=== PATIENT | female | born 1990 | race Caucasian/White ===

== ENCOUNTER 2017-03-07 18:44 | Emergency (ER) | payer MEDICAID ==
[~2017-03-07] VITALS: Ht 152.4 cm; Wt 47.7 kg
[~2017-03-07 18:44] MED LIST: CLEOCIN HCL300 MG PO; MULTIPLE VITAMI1 CAP PO; NORCO 325 MG-51 TAB PO
[2017-03-07 18:48] VITALS: BP 133/71; TEMP 98.3
[2017-03-07] MEDS ORDERED: AMOXICILLIN 8751 TAB PO (19:03)
[2017-03-07] MEDS ORDERED: NORCO 325 MG-51 TAB PO (20:12)
[2017-03-07 20:22] VITALS: PULSE 83
== END 2017-03-07 20:22 | disposition home or self-care (01) ==
LOC: COL.ER 18:44
DX: K04.7 Periapical abscess without sinus (principal)

== ENCOUNTER 2017-06-25 12:25 | Emergency (ER) | payer SELFPAY ==
[~2017-06-25] VITALS: Ht 152.4 cm; Wt 48.6 kg
[~2017-06-25 12:25] MED LIST changes: +AMOXICILLIN 8751 TAB PO
[2017-06-25 12:32] VITALS: TEMP 97.7
[2017-06-25] MEDS ORDERED: NAPROXEN 3375 MG/TAB PO (13:50)
[2017-06-25 14:05] VITALS: BP 117/85; PULSE 65
== END 2017-06-25 14:07 | disposition home or self-care (01) ==
LOC: COL.ER 12:25
DX: M94.0 Chondrocostal junction syndrome [Tietze] (principal); Z85.41 Personal history of malignant neoplasm of cervix uteri

== ENCOUNTER 2018-06-08 12:39 | Emergency (ER) | payer SELFPAY ==
[~2018-06-08] VITALS: Ht 152.4 cm; Wt 52.3 kg
[~2018-06-08 12:39] MED LIST changes: +NAPROXEN 3375 MG/TAB PO
[2018-06-08 12:47] VITALS: TEMP 98.7
[2018-06-08 14:20] VITALS: BP 104/64; PULSE 70
== END 2018-06-08 14:21 | disposition home or self-care (01) ==
LOC: COL.ER 12:39
DX: S62.306A Unspecified fracture of fifth metacarpal bone, right hand, initial encounter for closed fracture (principal); F17.210 Nicotine dependence, cigarettes, uncomplicated; W22.8XXA Striking against or struck by other objects, initial encounter; Y92.009 Unspecified place in unspecified non-institutional (private) residence as the place of occurrence of the external cause

== ENCOUNTER 2018-08-19 13:04 | Emergency (ER) | payer SELFPAY ==
[~2018-08-19] VITALS: Ht 152.4 cm; Wt 52.3 kg
[2018-08-19 13:30] VITALS: BP 114/69
[2018-08-19] MEDS ORDERED: AMOXICILLIN 8751 TAB PO (14:30)
[2018-08-19] MEDS ORDERED: NORCO 325 MG-51 TAB PO (14:30)
[2018-08-19 14:43] VITALS: PULSE 78; TEMP 98.6
== END 2018-08-19 14:43 | disposition home or self-care (01) ==
LOC: COL.ER 13:04
DX: K02.9 Dental caries, unspecified (principal); K04.7 Periapical abscess without sinus; F17.210 Nicotine dependence, cigarettes, uncomplicated

== ENCOUNTER 2019-02-25 12:23 | Emergency (ER) | payer SELFPAY ==
[~2019-02-25] VITALS: Ht 152.4 cm; Wt 52.3 kg
[2019-02-25 12:30] VITALS: BP 104/64; TEMP 98.4
[2019-02-25 13:32] VITALS: PULSE 78
== END 2019-02-25 13:30 | disposition home or self-care (01) ==
LOC: COL.ER 12:23
DX: R10.2 Pelvic and perineal pain (principal); G89.29 Other chronic pain; F17.210 Nicotine dependence, cigarettes, uncomplicated; Z85.41 Personal history of malignant neoplasm of cervix uteri

== ENCOUNTER 2019-05-15 22:56 | Emergency (ER) | payer SELFPAY ==
[~2019-05-15] VITALS: Ht 152.4 cm; Wt 45.5 kg
[2019-05-15 23:06] VITALS: BP 108/55; PULSE 71; TEMP 98.6
[2019-05-15] MEDS ORDERED: AMOXICILLIN 8751 TAB PO (23:21)
== END 2019-05-15 23:36 | disposition home or self-care (01) ==
LOC: COL.ER 22:56
DX: K08.89 Other specified disorders of teeth and supporting structures (principal)

== ENCOUNTER → 2019-09-02 | Emergency (ER) | payer OTHER ==
[~2019-09-02] VITALS: Ht 152.4 cm; Wt 52.3 kg
[2019-09-02 05:32] VITALS: TEMP 98.5
[2019-09-02 07:43] VITALS: BP 116/82; PULSE 74
== END ==
LOC: COL.ER 05:28
DX: S01.01XA Laceration without foreign body of scalp, initial encounter (principal); S20.229A Contusion of unspecified back wall of thorax, initial encounter; S05.12XA Contusion of eyeball and orbital tissues, left eye, initial encounter; Z23 Encounter for immunization; F17.210 Nicotine dependence, cigarettes, uncomplicated; Y08.89XA Assault by other specified means, initial encounter; Y92.009 Unspecified place in unspecified non-institutional (private) residence as the place of occurrence of the external cause
CPT/HCPCS: J0690; J2405; J3010

== ENCOUNTER → 2019-09-12 | Outpatient (CLI) | payer OTHER ==
[2019-09-12 14:47] VITALS: BP 105/73; PULSE 90; TEMP 98.5
== END ==
LOC: COL.ER 14:39
DX: Z48.02 Encounter for removal of sutures (principal)

== ENCOUNTER 2020-05-29 07:53 | Emergency (ER) | payer SELFPAY ==
[~2020-05-29] VITALS: Ht 152.4 cm; Wt 54.5 kg
[2020-05-29 08:44] LABS: BASO % 0.4 % (0.0-2.0); EOS # 0.1 (0.0-0.7); EOS % 1.2 % (0-4.0); GRAN # 7.8 (1.4-6.5); GRAN % 72.4 % (42.2-75.2); HEMATOCRIT 39.1 % (37.0-47.0); HEMOGLOBIN 13.5 g/dl (12.5-16.0); LYMPH # 2.1 (1.2-3.4); LYMPH % 19.8 % (20.0-51.0); MEAN CELL VOLUME 97 fl (80.0-100.0); MEAN CORPUSCULAR HEMOGLOBIN 33 pg (27.0-31.0); MEAN CORPUSCULAR HGB CONC 35 g/dl (33.0-37.0); MONO # 0.5 (0.1-0.6); PLATELET COUNT 237 K/mm3 (130-400); RED BLOOD COUNT 4.05 M/mm3 (4.10-5.30)
[2020-05-29 08:56] LABS: ALANINE AMINOTRANSFERASE 41 U/L (4-34); ALBUMIN 4.5 gm/dL (3.5-5.0); ALKALINE PHOSPHATASE 63 U/L (50-136); ANION GAP 11 mmol/L (7-16); AST,SGOT 36 U/L (15-37); BILIRUBIN,TOTAL 0.5 mg/dL (0.0-1.0); BLOOD UREA NITROGEN 7 mg/dL (7-17); CALCIUM 9.3 mg/dL (8.4-10.2); CARBON DIOXIDE 23 mmol/L (22-30); CHLORIDE 103 mmol/L (98-107); CREATININE, serum 0.47 (0.52-1.25); GLUCOSE 115 mg/dL (74-106); POTASSIUM 3.8 mmol/L (3.4-5.0); SODIUM 137 mmol/L (137-145); TOTAL PROTEIN 7.3 gm/dL (6.4-8.2)
[2020-05-29 08:57] LABS: ACETAMINOPHEN < 10 ug/mL (10-30); ALCOHOL(ethanol),MEDICAL < 10 mg/dL; SALICYLATE < 1.0 mg/dL
[2020-05-29] MEDS ORDERED: KEPPRA 500MG500 MG PO (13:24)
[2020-05-29] MEDS ORDERED: DIAST10 RC (13:25)
[2020-05-29 13:51] VITALS: BP 110/64; PULSE 72; TEMP 97.5
[2020-12-30] MEDS ORDERED: KEPPRA 500MG500 MG PO (17:29)
== END 2020-05-29 13:59 | disposition home or self-care (01) ==
LOC: COL.ER 07:53
PROVIDERS: Emergency Medicine
DX: G40.409 Other generalized epilepsy and epileptic syndromes, not intractable, without status epilepticus (principal); R93.0 Abnormal findings on diagnostic imaging of skull and head, not elsewhere classified
CPT/HCPCS: J1953; J2060; J2250; J2405

== ENCOUNTER 2020-06-07 18:37 | Emergency (ER) | payer SELFPAY ==
[~2020-06-07] VITALS: Ht 152.4 cm; Wt 44.5 kg
[~2020-06-07 18:37] MED LIST changes: +DIAST10 RC; +KEPPRA 500MG500 MG PO
[2020-06-07 18:46] VITALS: TEMP 98.7
[2020-06-07 19:32] VITALS: BP 110/77
[2020-06-07 19:38] LABS: BASO % 0.3 % (0.0-2.0); EOS # 0.5 (0.0-0.7); EOS % 5.1 % (0-4.0); GRAN # 3.8 (1.4-6.5); GRAN % 43.5 % (42.2-75.2); HEMATOCRIT 38.4 % (37.0-47.0); HEMOGLOBIN 12.8 g/dl (12.5-16.0); LYMPH # 3.7 (1.2-3.4); LYMPH % 41.7 % (20.0-51.0); MEAN CELL VOLUME 100 fl (80.0-100.0); MEAN CORPUSCULAR HEMOGLOBIN 33 pg (27.0-31.0); MEAN CORPUSCULAR HGB CONC 33 g/dl (33.0-37.0); MEAN PLATELET VOLUME 10.2 fl (7.4-10.4); MONO # 0.8 (0.1-0.6); MONO % 9.2 % (1.7-9.3); PLATELET COUNT 173 K/mm3 (130-400); RED BLOOD COUNT 3.86 M/mm3 (4.10-5.30); REDCELL DISTRIBUTION WIDTH-CV 12.5 % (11.5-14.5)
[2020-06-07 19:48] LABS: ALANINE AMINOTRANSFERASE 19 U/L (4-34); ALBUMIN 4.1 gm/dL (3.5-5.0); ALKALINE PHOSPHATASE 65 U/L (50-136); ANION GAP 9 mmol/L (7-16); AST,SGOT 23 U/L (15-37); BILIRUBIN,TOTAL 0.2 mg/dL (0.0-1.0); BLOOD UREA NITROGEN 8 mg/dL (7-17); CARBON DIOXIDE 25 mmol/L (22-30); CHLORIDE 107 mmol/L (98-107); CREATININE, serum 0.45 (0.52-1.25); GLUCOSE 97 mg/dL (74-106); POTASSIUM 3.8 mmol/L (3.4-5.0); SODIUM 141 mmol/L (137-145); TOTAL PROTEIN 6.7 gm/dL (6.4-8.2)
[2020-06-07 19:58] LABS: C-REACTIVE PROTEIN < 0.5 mg/dL (0.0-0.9)
[2020-06-07 20:07] LABS: PROLACTIN 16.4 ng/mL (3.0-18.6)
[2020-06-07] MEDS ORDERED: ATIVAN 0.50.5 MG/TAB PO (20:43)
[2020-06-07 21:39] VITALS: PULSE 85
--- NOTE | 2020-06-11 15:09 | NUR ---
collision worker confirmed with [facility] financial counselor, that patient does not qualify for medicaid/disability. Worker confirmed with Dr Mcbride's office that they will not provide pamela or reduce fees and that brianne would need to pay $200 for her visit. Worker contacted Dr Fuller's office ([facility] clinic and confirmed that they only offer pamela care for [facility] patients and not for [facility] patients. Worker confirmed that an initial work up would cost aroun $800.00 with 40.00 co pays/visit. Worker contacted patient and advised of the above information. Worker encouraged patient to contact [facility] financial counselor and that we could schedule a primary care provider at [facility] or [facility], and patient stated there is a co pay at [facility] and hung up on worker.
[2020-12-30] MEDS ORDERED: KEPPRA 500MG500 MG PO (17:29)
== END 2020-06-07 21:41 | disposition home or self-care (01) ==
LOC: COL.ER 18:37
PROVIDERS: Emergency Medicine
DX: R51.9 Headache, unspecified (principal); F17.210 Nicotine dependence, cigarettes, uncomplicated; Z86.69 Personal history of other diseases of the nervous system and sense organs

== ENCOUNTER 2020-11-20 13:08 | Emergency (ER) | payer SELFPAY ==
[~2020-11-20] VITALS: Ht 152.4 cm; Wt 45.5 kg
[~2020-11-20 13:08] MED LIST changes: +ATIVAN 0.50.5 MG/TAB PO
[2020-11-20 13:40] LABS: BASO % 0.4 % (0.0-2.0); EOS # 0.3 (0.0-0.7); EOS % 4.8 % (0-4.0); GRAN # 3.6 (1.4-6.5); GRAN % 50.5 % (42.2-75.2); HEMATOCRIT 41.7 % (37.0-47.0); HEMOGLOBIN 14.2 g/dl (12.5-16.0); LYMPH # 2.6 (1.2-3.4); LYMPH % 36.3 % (20.0-51.0); MEAN CELL VOLUME 97 fl (80.0-100.0); MEAN CORPUSCULAR HEMOGLOBIN 33 pg (27.0-31.0); MEAN CORPUSCULAR HGB CONC 34 g/dl (33.0-37.0); MEAN PLATELET VOLUME 9.6 fl (7.4-10.4); MONO # 0.5 (0.1-0.6); MONO % 7.2 % (1.7-9.3); PLATELET COUNT 281 K/mm3 (130-400); RED BLOOD COUNT 4.31 M/mm3 (4.10-5.30); REDCELL DISTRIBUTION WIDTH-CV 12.8 % (11.5-14.5)
[2020-11-20 13:57] LABS: ALANINE AMINOTRANSFERASE 29 U/L (4-34); ALKALINE PHOSPHATASE 68 U/L (50-136); ANION GAP 13 mmol/L (7-16); AST,SGOT 31 U/L (15-37); BILIRUBIN,TOTAL 0.2 mg/dL (0.0-1.0); BLOOD UREA NITROGEN 17 mg/dL (7-17); CALCIUM 9.3 mg/dL (8.4-10.2); CARBON DIOXIDE 23 mmol/L (22-30); CHLORIDE 107 mmol/L (98-107); CREATININE, serum 0.65 (0.52-1.25); GLUCOSE 103 mg/dL (74-106); POTASSIUM 3.8 mmol/L (3.4-5.0); SODIUM 143 mmol/L (137-145)
[2020-11-20 14:05] LABS: C-REACTIVE PROTEIN < 0.5 mg/dL (0.0-0.9)
[2020-11-20 14:53] LABS: COLLECTION METHOD CLEAN CATCH
[2020-11-20 15:16] LABS: TRICYCLIC ANTIDEPRESS URINE NEGATIVE
[2020-11-20 15:43] LABS: MUCOUS Present /lpf; PH 5 (5-8); URINE APPEARANCE Turbid; URINE BACTERIA None Seen /hpf; URINE BILIRUBIN Negative (NEGATIVE); URINE BLOOD 1+ (NEGATIVE); URINE COLOR Yellow; URINE GLUCOSE Negative (NEGATIVE); URINE KETONE Trace (NEGATIVE); URINE LEUKOCYTE ESTERASE Negative (NEGATIVE); URINE NITRATE Negative (NEGATIVE); URINE PROTEIN(semi-quant) 2+ (NEGATIVE); URINE RBC 0-2 /hpf; URINE TRIPLE PHOSPHATE CRYSTAL Present /hpf; URINE UROBILINOGEN Negative (NEGATIVE)
[2020-11-20] MEDS ORDERED: DEPAKOTE ER 50500 MG PO (18:03)
[2020-11-20 18:37] VITALS: BP 124/63; PULSE 61; TEMP 98.6
[2020-12-30] MEDS ORDERED: KEPPRA 500MG500 MG PO (17:29)
== END 2020-11-20 18:37 | disposition home or self-care (01) ==
LOC: COL.ER 13:08
PROVIDERS: Nurse Practitioner
DX: R55 Syncope and collapse (principal); Z86.69 Personal history of other diseases of the nervous system and sense organs; Z20.822 Contact with and (suspected) exposure to COVID-19
CPT/HCPCS: J1953; J2405; J7030

== ENCOUNTER 2020-11-22 14:09 | Emergency (ER) | payer SELFPAY ==
[~2020-11-22] VITALS: Ht 152.4 cm; Wt 45.9 kg
[~2020-11-22 14:09] MED LIST changes: +DEPAKOTE ER 50500 MG PO
[2020-11-22 14:31] VITALS: TEMP 98.6
[2020-11-22 16:14] VITALS: BP 119/71; PULSE 60
[2020-12-30] MEDS ORDERED: KEPPRA 500MG500 MG PO (17:29)
== END 2020-11-22 16:15 | disposition home or self-care (01) ==
LOC: COL.ER 14:09
DX: R56.9 Unspecified convulsions (principal); F17.210 Nicotine dependence, cigarettes, uncomplicated; Z79.899 Other long term (current) drug therapy

== ENCOUNTER 2021-10-04 10:04 | Emergency (ER) | payer SELFPAY ==
[~2021-10-04] VITALS: Ht 152.4 cm; Wt 45.5 kg
[2021-10-04 10:10] VITALS: TEMP 97.6
[2021-10-04 10:31] LABS: COLLECTION METHOD CLEAN CATCH
[2021-10-04 10:38] LABS: MUCOUS Present (NOT PRESENT); PH 5 (5-8); URINE APPEARANCE Hazy (CLEAR/HAZY); URINE BACTERIA None Seen /hpf (NONE SEEN); URINE BILIRUBIN Negative (NEGATIVE); URINE BLOOD Negative (NEGATIVE); URINE COLOR Amber (YELLOW); URINE GLUCOSE Negative (NEGATIVE); URINE KETONE 1+ (NEGATIVE); URINE LEUKOCYTE ESTERASE Negative (NEGATIVE); URINE NITRATE Negative (NEGATIVE); URINE PROTEIN(semi-quant) 2+ (NEGATIVE); URINE RBC 0-2 /hpf (0-2); URINE UROBILINOGEN Negative (NEGATIVE)
[2021-10-04 10:44] LABS: HEMATOCRIT 37.8 % (37.0-47.0); MEAN CELL VOLUME 97 fl (80.0-100.0); MEAN CORPUSCULAR HEMOGLOBIN 33 pg (27-31); MEAN CORPUSCULAR HGB CONC 34 g/dl (33.0-37.0); MEAN PLATELET VOLUME 10.5 fl (7.4-10.4); PLATELET COUNT 147 K/mm3 (130-400); RED BLOOD COUNT 3.89 M/mm3 (4.10-5.30); REDCELL DISTRIBUTION WIDTH-CV 13.1 % (11.5-14.5)
[2021-10-04 10:58] LABS: BAND 10 % (0-10); BASOPHIL 1 % (0-2); LYMPHOCYTE 18 % (20.0-51.0); METAMYELOCYTE 2 % (0-0); NEUTROPHILS 47 % (42.0-75.2); PLATELET ESTIMATE NORMAL (NORMAL)
[2021-10-04 11:01] LABS: ALBUMIN 4.5 gm/dL (3.5-5.0); BILIRUBIN,TOTAL 0.3 mg/dL (0.2-1.2); CALCIUM 9.2 mg/dL (8.4-10.2); CREATININE, serum 0.75 mg/dL (0.57-1.11); POTASSIUM 3.5 mmol/L (3.5-4.5); TOTAL PROTEIN 7.2 gm/dL (6.2-8.1)
[2021-10-04] MEDS ORDERED: ZOFRAN ODT4 MG PO (12:00)
[2021-10-04 12:44] VITALS: BP 100/80; PULSE 83
== END 2021-10-04 12:46 | disposition home or self-care (01) ==
LOC: COL.ER 10:04
PROVIDERS: Nurse Practitioner Primary Care
DX: U07.1 COVID-19 (principal); F17.210 Nicotine dependence, cigarettes, uncomplicated; Z28.310 Unvaccinated for COVID-19
CPT/HCPCS: J2405; J7030